=== PATIENT | female | born 1945 | race Caucasian/White ===

== ENCOUNTER → 2018-02-14 07:58 | Outpatient (CLI) | payer MEDICARE, OTHER, SELFPAY ==
[2018-02-14 08:30] LABS: Add Manual Diff / Slide Review NO; Basophils Percent Auto 0.6 % (0-2); Eosinophils Percent Auto 1.8 % (2-4); Hematocrit 38.5 % (36-46); Hemoglobin 12.4 g/dL (12.0-16.0); Lymphocytes Percent Auto 32.4 % (25-40); Mean Corpuscular HGB Conc 32.2 % (30-36); Mean Corpuscular Hemoglobin 26.8 PG (26-34); Mean Corpuscular Volume 83.3 fL (80-100); Monocytes Percent Auto 6.7 % (3-14); Neutrophils Absolute Auto 6500 /uL (3000-5900); Neutrophils Percent Auto 58.5 % (50-75); Platelet Count 250 X10^3/uL (150-400); Red Blood Cell Count 4.62 X10^6/uL (4.0-5.2); Red Cell Distribution Width 16.7 % (11.6-14.8); White Blood Cell Count 11.1 X10^3/uL (4.5-11.0)
[2018-02-14 08:48] LABS: Erythrocyte Sedimentation Rate 49 MM/HR (0-20)
[2018-02-14 08:57] LABS: C-Reactive Protein Quant 0.9 mg/dL (<1.0)
== END ==
PROVIDERS: Family Provider Family Medicine; PCP Family Medicine; Visit Provider Orthopaedic Surgery
DX: M25.561 Pain in right knee (principal); T84.53XD Infection and inflammatory reaction due to internal right knee prosthesis, subsequent encounter; Z96.651 Presence of right artificial knee joint
CPT/HCPCS: 36415; 85025; 85651; 86140

== ENCOUNTER → 2019-05-09 07:52 | Outpatient (CLI) | payer MEDICARE, OTHER, SELFPAY ==
[2019-05-09 09:21] LABS: Add Manual Diff / Slide Review NO; Basophils Absolute Auto 0 /uL (0-100); Basophils Percent Auto 0.2 % (0-2); Eosinophils Absolute Auto 200 /uL (0-450); Eosinophils Percent Auto 2.4 % (2-4); Hematocrit 37.9 % (36-46); Hemoglobin 12.6 g/dL (12.0-16.0); Lymphocytes Absolute Auto 3000 /uL (1100-4500); Lymphocytes Percent Auto 30.5 % (25-40); Mean Corpuscular HGB Conc 33.4 % (30-36); Mean Corpuscular Hemoglobin 28.4 PG (26-34); Mean Corpuscular Volume 85.3 fL (80-100); Monocytes Absolute Auto 600 /uL (0-900); Monocytes Percent Auto 6.2 % (3-14); Neutrophils Absolute Auto 6000 /uL (1500-7000); Neutrophils Percent Auto 60.7 % (50-75); Platelet Count 218 X10^3/uL (150-400); Red Blood Cell Count 4.44 X10^6/uL (4.0-5.2); Red Cell Distribution Width 14.2 % (11.6-14.8); White Blood Cell Count 9.8 X10^3/uL (4.5-11.0)
[2019-05-09 09:30] LABS: BUN Creatinine Ratio 21.3 (6-22); Blood Urea Nitrogen 17 mg/dL (7-17); Calcium 9.8 mg/dL (8.4-10.2); Carbon Dioxide 27 mmol/L (22-32); Chloride 99 mmol/L (98-107); Cholesterol 177 mg/dL (140-199); Estimated Glomerular Filt Rate > 60.0 mL/min (>60); Glucose 190 mg/dL (80-110); HDL Cholesterol 50 mg/dL (40-60); HEMOLYSIS < 15 (0-50); LDL Cholesterol Calculated 77 mg/dL (<100); Potassium 4.2 mmol/L (3.4-5.1); Sodium 140 mmol/L (137-145); Triglycerides 248 mg/dL (35-150)
[2019-05-09 09:31] LABS: Hemoglobin A1C% w Est Avg Glu 7.1 % (4.0-6.0)
[2019-05-09 09:56] LABS: Vitamin D 25 Hydroxy (D3) 32.4 ng/mL (30.0-100.0)
== END ==
PROVIDERS: Visit Provider Student in an Organized Health Care Education/Training Program
DX: E11.9 Type 2 diabetes mellitus without complications (principal); Z00.00 Encounter for general adult medical examination without abnormal findings; I10 Essential (primary) hypertension; E78.5 Hyperlipidemia, unspecified; E55.9 Vitamin D deficiency, unspecified
CPT/HCPCS: 36415; 80048; 80061; 82306; 83036; 85025

== ENCOUNTER → 2019-06-11 09:44 | Outpatient (CLI) | payer MEDICARE, OTHER, SELFPAY ==
--- NOTE | 2019-06-11 | DI.MG.S_ITS ---
BILATERAL DIGITAL SCREENING MAMMOGRAM 3D/2D WITH CAD: 06/11/2019 CLINICAL: Routine screening. Comparison is made to exams dated: 01/18/2018 mammogram, 07/26/2016 mammogram, and 06/22/2015 mammogram - [facility]. The tissue of both breasts is heterogeneously dense. This may lower the sensitivity of mammography. Current study was also evaluated with a Computer Aided Detection (CAD) system. There are benign calcifications in both breasts. No significant masses, calcifications, or other findings are seen in either breast. There has been no significant interval change. IMPRESSION: There is no mammographic evidence of malignancy. A 1 year screening mammogram is recommended. This exam was interpreted at Station ID: [id number]. NOTE: For mammograms, a report in lay terms will be sent to the patient. Approximately 15% of breast malignancies will not be visualized mammographically. In the management of a palpable breast mass, a negative mammogram must not discourage biopsy of a clinically suspicious lesion. Electronically Signed By: Nathaniel miller/isiah:06/11/2019 14:16:22 letter sent: Normal Exam ACR BI-RADS Category 2: Benign Finding(s) 3342F
== END ==
PROVIDERS: PCP Student in an Organized Health Care Education/Training Program; Visit Provider Student in an Organized Health Care Education/Training Program
DX: Z12.31 Encounter for screening mammogram for malignant neoplasm of breast (principal)
CPT/HCPCS: 77063; 77067

== ENCOUNTER → 2020-06-21 11:29 | Outpatient (CLI) | payer MEDICARE, OTHER, SELFPAY ==
--- NOTE | 2020-06-21 | DI.MG.S_ITS ---
BILATERAL DIGITAL SCREENING MAMMOGRAM 3D/2D WITH CAD: 06/21/2020 CLINICAL: Routine screening. Comparison is made to exams dated: 06/11/2019 mammogram, 01/18/2018 mammogram, and 07/26/2016 mammogram - [facility]. The tissue of both breasts is heterogeneously dense. This may lower the sensitivity of mammography. Current study was also evaluated with a Computer Aided Detection (CAD) system. There are benign calcifications in both breasts. No significant masses, calcifications, or other findings are seen in either breast. There has been no significant interval change. IMPRESSION: BENIGN There is no mammographic evidence of malignancy. A 1 year screening mammogram is recommended. This exam was interpreted at Station ID: [id number]. NOTE: For mammograms, a report in lay terms will be sent to the patient. Approximately 15% of breast malignancies will not be visualized mammographically. In the management of a palpable breast mass, a negative mammogram must not discourage biopsy of a clinically suspicious lesion. Electronically Signed By: Viola coates/isiah:06/21/2020 12:05:45 letter sent: Normal Exam ACR BI-RADS Category 2: Benign Finding(s) 3342F
== END ==
PROVIDERS: PCP Student in an Organized Health Care Education/Training Program; Referring Provider Student in an Organized Health Care Education/Training Program; Visit Provider Student in an Organized Health Care Education/Training Program
DX: Z12.31 Encounter for screening mammogram for malignant neoplasm of breast (principal)
CPT/HCPCS: 77063; 77067

== ENCOUNTER 2020-06-26 16:02 | Emergency (ER) | payer MEDICARE, OTHER, SELFPAY ==
--- NOTE | 2020-06-26 16:05 | DI.RAD.S_ITS ---
PROCEDURE: XR CHEST 1V INDICATIONS: chest pain TECHNIQUE: One view of the chest was acquired. COMPARISON: None. FINDINGS: Surgical changes and devices: None. Lungs and pleura: Lungs are clear. No pleural effusions or pneumothorax. Mediastinum: The cardiac contours are within normal limits. The aorta demonstrates calcification and tortuosity. Bones and chest wall: Age-appropriate bony degenerative changes are seen. S-shaped scoliotic curvature is seen. No suspicious bony lesions. Overlying soft tissues appear unremarkable. IMPRESSION: Unremarkable portable chest for age. Dictated by: Boaz You M.D. on 06/26/2020 at 15:43 Approved by: Boaz You M.D. on 06/26/2020 at 15:43
[2020-06-26 16:09] VITALS: PULSE 65; RESP 18; TEMP 36.3; O2SAT 99
--- NOTE | 2020-06-26 16:22 | ED.CHESTPAIN ---
HPI - Chest Pain General Chief Complaint: Chest Pain Stated Complaint: chest pains Time Seen by Provider: 06/26/20 16:07 Source: patient Mode of arrival: Ambulatory Limitations: no limitations History of Present Illness HPI narrative: Patient is a 75-year-old female who presents with chest pain back pain abdominal pain. She said she started having some back pain which radiated to her stomach 2 days ago. It has come and gone but now seems to be worse than it was previously. She does feel a little nauseous but no vomiting. Her pain is in the epigastric region she denies any real chest pain or pressure. No shortness of breath with exertion no fever or chills. MD complaint: chest pain Related Data Home Medications Medication Instructions Recorded Confirmed atorvastatin [Lipitor] 10 mg PO HS #0 05/22/12 ferrous sulfate [Iron (ferrous 65 mg PO BID #0 05/22/12 sulfate)] hydrochlorothiazide 25 mg PO QDAY #0 05/22/12 verapamil [Verelan PM] 300 mg PO HS #0 05/22/12 CA PANTOTHENATE/FOLIC ACID/VIT 1 tab PO QDAY #0 03/30/13 (MULTIVITAMIN) metformin [Fortamet] 1,000 mg PO BID #0 03/30/13 atenolol 50 mg PO HS #0 04/02/13 glimepiride [Amaryl] 4 mg PO BID #0 09/30/17 sitagliptin [Januvia] 100 mg PO QAM #0 09/30/17 Previous Rx's Medication Instructions Recorded aspirin 81 mg PO BID #60 10/08/17 oxycodone 0 mg PO Q3HP PRN #60 10/08/17 Allergies Allergy/AdvReac Type Severity Reaction Status Date / Time lisinopril [LISINOPRIL] Allergy Intermediate COUGH, RASH Unverified 12/18/17 12:22 valsartan [VALSARTAN] Allergy Intermediate COUGH, RASH Unverified 12/18/17 12:22 adhesive tape AdvReac Mild paper tape Verified 06/26/20 16:50 - makes skin red Review of Systems Review of Systems Narrative: GENERAL: Denies chills, fatigue, malaise, fever, sweats, travel HEENT: Denies sinus pain, ear pain, sore throat, difficulty swallowing, neck pain RESPIRATORY: Denies dyspnea, cough, wheezing, hemoptysis, sputum. CARDIOVASCULAR: See HPI GASTROINTESTINAL: See HPI : Denies dysuria, frequency, incontinence, hematuria, urinary retention, flank pain. MUSCULOSKELETAL: Denies weakness, joint pain, or bony pain SKIN: No rash, no erythema, no pruritus NEUROLOGIC: Denies weakness, dizziness, headache, numbness, change in speech, confusion PSYCHIATRIC: No concerning psychosocial issues. 12 point review of systems is negative except for those stated above and HPI Exam Initial Vital Signs Initial Vital Signs: Vital Signs Temperature 97.3 F L 06/26/20 16:09 Pulse Rate 65 06/26/20 16:09 Respiratory Rate 18 06/26/20 16:09 Pulse Oximetry 99 06/26/20 16:09 GENERAL: Alert elder female and in no acute distress. HEENT: Head atraumatic,EOMI, pupils reactive, face symmetric, moist mucous membranes CARDIOVASCULAR: Regular rate and rhythm without murmurs, rubs or gallops. RESPIRATORY: Breath sounds equal bilaterally, no wheezes rales or rhonchi. ABDOMEN: Soft, positive Mason sign right upper quadrant pain no guarding or rebound EXTREMITIES: Normal range of motion, no clubbing or edema. Neurovascularly intact NEUROLOGICAL: Alert and oriented x4.Normal gait and speech. SKIN: Warm, dry, no laceration, no petechiae, no rashes or lesions. Course Orders Ordered: ED Orders 06/26/20 16:05 XR chest 1V Stat EKG-12 Lead Stat 06/26/20 16:20 Complete Blood Count AUTO DIFF Stat Comprehensive Metabolic Panel Stat Lipase Stat Partial Thromboplastin Time Stat Prothrombin Time INR Stat Troponin & CK Cardiac Panel Stat 06/26/20 16:45 US abdomen limited Stat 06/26/20 18:19 COVID19 -ED/INPAT/OR/L&D Stat Discontinued Medications Ketorolac Tromethamine (Toradol) 15 mg IV NOW ONE Stop: 06/26/20 16:46 Last Admin: 06/26/20 17:19 Dose: 15 mg Documented by: REGINA Ondansetron HCl (Zofran) 4 mg IV NOW ONE Stop: 06/26/20 16:46 Last Admin: 06/26/20 17:20 Dose: 4 mg Documented by: REGINA Consultations Consultation #1: Dr. Mckoy surgery recommends patient be transferred where ERCP is available. MRCP is unavailable today Time: 17:45 Consultation #2: Dr. Steinberg GI specialist at [facility] agrees with transfer. Hospitalist needs to accept Time: 17:57 Consultation #3: Dr. Maradiaga hospitalist accepts at [facility] Time: 18:05 Vital Signs Vital signs: Vital Signs - 8 hr 06/26/20 16:09 06/26/20 16:26 06/26/20 16:30 Temperature 97.3 F L Pulse Rate 65 60 59 L Respiratory Rate 18 26 H 28 H Blood Pressure 185/74 H Pulse Oximetry 99 100 97 MDM - Chest Pain Lab Data Attestation: I reviewed the patient's lab results. Result diagrams: 06/26/20 16:20 06/26/20 16:20 Labs: Lab Results 06/26/20 06/26/20 06/26/20 Range/Units 16:20 16:20 16:20 WBC 9.2 (4.5-11.0) X10^3/uL RBC 4.85 (4.0-5.2) X10^6/uL Hgb 13.7 (12.0-16.0) g/dL Hct 41.5 (36-46) % MCV 85.6 (80-100) fL MCH 28.3 (26-34) PG MCHC 33.1 (30-36) % RDW 14.1 (11.6-14.8) % Plt Count 217 (150-400) X10^3/uL Neut % (Auto) 72.8 (50-75) % Lymph % (Auto) 18.9 L (25-40) % Glynn % (Auto) 7.2 (3-14) % Eos % (Auto) 0.6 L (2-4) % Baso % (Auto) 0.5 (0-2) % Neut # (Auto) 6700 (6336-5896) /uL Lymph # (Auto) 1700 (2760-5956) /uL Glynn # (Auto) 700 (0-900) /uL Eos # (Auto) 100 (0-450) /uL Baso # (Auto) 0 (0-100) /uL PT 11.3 (10.1-12.7) SECONDS INR 1.0 (0.9-1.3) APTT 29 (26.4-36.2) SECONDS Sodium 136 L (137-145) mmol/L Potassium 3.5 (3.4-5.1) mmol/L Chloride 94 L (98-107) mmol/L Carbon Dioxide 32 (22-32) mmol/L BUN 22 H (7-17) mg/dL Creatinine 0.76 (0.52-1.04) mg/dL Estimated GFR > 60.0 (>60) mL/min BUN/Creatinine Ratio 28.9 H (6-22) Glucose 341 H (80-110) mg/dL Calcium 10.0 (8.4-10.2) mg/dL Total Bilirubin 2.2 H (0.2-1.3) mg/dL AST 785 H (14-36) IU/L ALT 295 H (<35) IU/L Alkaline Phosphatase 161 H (38-126) U/L Total Creatine Kinase 25 L (30-135) U/L CK-MB (CK-2) TNP CK-MB (CK-2) Rel Index TNP Troponin I < 0.012 (0.01-0.034) ng/mL Total Protein 8.5 H (6.3-8.2) g/dL Albumin 4.6 (3.5-5.0) g/dL Globulin 3.9 (1.7-4.1) g/dL Albumin/Globulin Ratio 1.2 (1.0-2.8) Lipase 91 (23-300) U/L Imaging Data US - abdomen: Radiologist's Impression: PROCEDURE: US ABDOMEN LIMITED INDICATIONS: CHEST PAIN TECHNIQUE: Real-time focused scanning was performed of the abdomen, with image documentation. COMPARISON: None. FINDINGS: The liver is mildly prominent in size and demonstrates no focal lesions. There is mildly increased liver echogenicity. Sludge can be seen within the gallbladder. Potential mobile gallstones are seen. The gallbladder wall is not thickened, measuring 3 mm or less. No specific pericholecystic fluid is seen. The sonographic Mason sign is negative. The common bile duct is dilated at 12 mm. The pancreas appears fatty and there is minimal dilatation of the pancreatic duct at 3.4 mm. At the inferior pole of the right kidney, there is a 3 cm simple cyst seen. IMPRESSION: Sludge can be seen within the gallbladder. Potential gallstones are also seen, without additional gallbladder abnormality. Dilatation of the common bile duct and minimal dilatation of the pancreatic duct. If clinically appropriate, an MRCP could be considered for further evaluation (assuming that there is no contraindication to MRI). Simple appearing 3 cm cyst at the inferior pole of the right kidney. Dictated by: Boaz You M.D. on 06/26/2020 at 16:27 Approved by: Boaz You M.D. on 06/26/2020 at 16:29 Chest x-ray: Radiologist's Impression: PROCEDURE: XR CHEST 1V INDICATIONS: chest pain TECHNIQUE: One view of the chest was acquired. COMPARISON: None. FINDINGS: Surgical changes and devices: None. Lungs and pleura: Lungs are clear. No pleural effusions or pneumothorax. Mediastinum: The cardiac contours are within normal limits. The aorta demonstrates calcification and tortuosity. Bones and chest wall: Age-appropriate bony degenerative changes are seen. S-shaped scoliotic curvature is seen. No suspicious bony lesions. Overlying soft tissues appear unremarkable. IMPRESSION: Unremarkable portable chest for age. Dictated by: Boaz You M.D. on 06/26/2020 at 15:43 ECG Data Attestation: I personally reviewed and interpreted this ECG as follows: Prior ECG tracings: available for review Interpretation: Normal sinus rhythm rate 64 p.r. interval 172 QRS [address] changes MDM Narrative Medical decision making narrative: Patient is hemodynamically stable no leukocytosis or fever. Liver enzymes are elevated along with bilirubin ultrasound shows potential gallstones. With a dilated common bile duct suspect choledocholithiasis. Unable to do MRCP today, unable to do ERCP at this facility. Patient will be transferred to [facility] Patient's pain is controlled with Toradol Discharge [facility]: Choledocholithiasis, Cholecystitis Prescriptions: No Action hydrochlorothiazide 25 MG tablet 25 mg PO QDAY Qty: 0 RF: 0 atorvastatin [Lipitor] 10 MG tablet 10 mg PO HS Qty: 0 RF: 0 verapamil [Verelan PM] 300 MG capsule, [address] 300 mg PO HS Qty: 0 RF: 0 ferrous sulfate [Iron (ferrous sulfate)] 325 MG tablet 65 mg PO BID Qty: 0 RF: 0 metformin [Fortamet] 500 MG tablet extended release 24hr 1,000 mg PO BID Qty: 0 RF: 0 CA PANTOTHENATE/FOLIC ACID/VIT (MULTIVITAMIN) 1 tab PO QDAY Qty: 0 RF: 0 atenolol 50 MG tablet 50 mg PO HS Qty: 0 RF: 0 sitagliptin [Januvia] 100 MG tablet 100 mg PO QAM Qty: 0 RF: 0 glimepiride [Amaryl] 4 MG tablet 4 mg PO BID Qty: 0 RF: 0 aspirin 81 MG tablet,delayed release (DR/EC) 81 mg PO BID Qty: 60 RF: 0 oxycodone 5 MG tablet 0 mg PO Q3HP PRNQty: 60 RF: 0 Referrals: Eden Gomez MD [Primary Care Provider] -
[2020-06-26 16:26] VITALS: PULSE 60; RESP 26; O2SAT 100
[2020-06-26 16:29] LABS: Add Manual Diff / Slide Review NO; Basophils Absolute Auto 0 /uL (0-100); Basophils Percent Auto 0.5 % (0-2); Eosinophils Absolute Auto 100 /uL (0-450); Eosinophils Percent Auto 0.6 % (2-4); Hematocrit 41.5 % (36-46); Hemoglobin 13.7 g/dL (12.0-16.0); Lymphocytes Absolute Auto 1700 /uL (1100-4500); Lymphocytes Percent Auto 18.9 % (25-40); Mean Corpuscular HGB Conc 33.1 % (30-36); Mean Corpuscular Hemoglobin 28.3 PG (26-34); Mean Corpuscular Volume 85.6 fL (80-100); Monocytes Absolute Auto 700 /uL (0-900); Monocytes Percent Auto 7.2 % (3-14); Neutrophils Absolute Auto 6700 /uL (1500-7000); Neutrophils Percent Auto 72.8 % (50-75); Platelet Count 217 X10^3/uL (150-400); Red Blood Cell Count 4.85 X10^6/uL (4.0-5.2); Red Cell Distribution Width 14.1 % (11.6-14.8); White Blood Cell Count 9.2 X10^3/uL (4.5-11.0)
[2020-06-26 16:30] VITALS: BP 185/74; PULSE 59; RESP 28; O2SAT 97
[2020-06-26 16:37] LABS: Prothrombin Time 11.3 SECONDS (10.1-12.7)
[2020-06-26 16:39] LABS: PTT Partial Thromboplastin Tim 29 SECONDS (26.4-36.2)
[2020-06-26 16:41] LABS: Alanine Aminotransferase 295 IU/L (<35); Albumin 4.6 g/dL (3.5-5.0); Albumin Globulin Ratio 1.2 (1.0-2.8); Alkaline Phosphatase 161 U/L (38-126); BUN Creatinine Ratio 28.9 (6-22); Bilirubin Total 2.2 mg/dL (0.2-1.3); Blood Urea Nitrogen 22 mg/dL (7-17); Carbon Dioxide 32 mmol/L (22-32); Chloride 94 mmol/L (98-107); Creatine Kinase 25 U/L (30-135); Estimated Glomerular Filt Rate > 60.0 mL/min (>60); Globulin 3.9 g/dL (1.7-4.1); Glucose 341 mg/dL (80-110); HEMOLYSIS < 15 (0-50); Lipase 91 U/L (23-300); Potassium 3.5 mmol/L (3.4-5.1); Sodium 136 mmol/L (137-145); Total Protein 8.5 g/dL (6.3-8.2)
--- NOTE | 2020-06-26 16:45 | DI.US.S_ITS ---
PROCEDURE: US ABDOMEN LIMITED INDICATIONS: CHEST PAIN TECHNIQUE: Real-time focused scanning was performed of the abdomen, with image documentation. COMPARISON: None. FINDINGS: The liver is mildly prominent in size and demonstrates no focal lesions. There is mildly increased liver echogenicity. Sludge can be seen within the gallbladder. Potential mobile gallstones are seen. The gallbladder wall is not thickened, measuring 3 mm or less. No specific pericholecystic fluid is seen. The sonographic Mason sign is negative. The common bile duct is dilated at 12 mm. The pancreas appears fatty and there is minimal dilatation of the pancreatic duct at 3.4 mm. At the inferior pole of the right kidney, there is a 3 cm simple cyst seen. IMPRESSION: Sludge can be seen within the gallbladder. Potential gallstones are also seen, without additional gallbladder abnormality. Dilatation of the common bile duct and minimal dilatation of the pancreatic duct. If clinically appropriate, an MRCP could be considered for further evaluation (assuming that there is no contraindication to MRI). Simple appearing 3 cm cyst at the inferior pole of the right kidney. Dictated by: Boaz You M.D. on 06/26/2020 at 16:27 Approved by: Boaz You M.D. on 06/26/2020 at 16:29
[2020-06-26 16:47] LABS: Aspartate Aminotransferase 785 IU/L (14-36)
[2020-06-26 16:53] LABS: Troponin I < 0.012 ng/mL (0.01-0.034)
[2020-06-26] MEDS: KETOROLAC 60 MG/2 ML VIAL 15 MG IV (17:19)
[2020-06-26] MEDS: ONDANSETRON 4 MG/2 ML INJ IV (17:20)
--- NOTE | 2020-06-26 18:39 | PC.NURSE ---
SBAR GIVEN TO NURSE AT [place] [place]
[2020-06-26 18:44] LABS: COVID19 -Nasal RAPID Negative (Negative)
[2020-06-26] MEDS: atenoloL 25 MG TABLET 75 MG PO (19:34)
[2020-06-26] MEDS: ATORVASTATIN 20 MG TABLET 10 MG PO (19:34)
[2020-06-26 19:40] VITALS: BP 194/80; PULSE 81; RESP 18; O2SAT 99
[2020-06-26 21:04] VITALS: BP 162/65; PULSE 63; RESP 20; O2SAT 99
== END 2020-06-26 21:08 | disposition short-term general hospital (02) ==
PROVIDERS: Emergency Provider Emergency Medicine; PCP Student in an Organized Health Care Education/Training Program
DX: K80.40 Calculus of bile duct with cholecystitis, unspecified, without obstruction (principal); M54.9 Dorsalgia, unspecified; R07.9 Chest pain, unspecified
CPT/HCPCS: 36415; 71045; 76705; 80053; 82550; 83690; 84484; 85025; 85610; 85730; 87635; 93005; 93010; 96374; 96375; 99284; J1885; J2405

== ENCOUNTER → 2020-06-30 12:55 | Outpatient (CLI) | payer MEDICARE, OTHER, SELFPAY ==
--- NOTE | 2020-06-30 12:59 | DI.RAD.S_ITS ---
PROCEDURE: XR CHEST 2V INDICATIONS: fall, rib pain TECHNIQUE: 2 views of the chest were acquired. COMPARISON: [facility], CR, XR RIBS LT 2V, 06/30/2020, 13:15. [facility], CR, XR CHEST 1V, 06/26/2020, 16:10. FINDINGS: Surgical changes and devices: None. Lungs and pleura: Lungs are clear. No pleural effusions or pneumothorax. Mediastinum: The cardiac contours are within normal limits. The aorta demonstrates calcification and tortuosity. Bones and chest wall: No suspicious bony abnormalities. Age-appropriate bony degenerative changes are seen. Soft tissues appear unremarkable. IMPRESSION: Unremarkable chest plain films for age, without displaced rib fractures or pneumothorax. Dictated by: Boaz You M.D. on 06/30/2020 at 12:29 Approved by: Boaz You M.D. on 06/30/2020 at 12:30
--- NOTE | 2020-06-30 12:59 | DI.RAD.S_ITS ---
PROCEDURE: XR RIBS LT 2V INDICATIONS: fall, rib pain TECHNIQUE: 2 views of the left ribs were acquired. COMPARISON: [facility], CR, XR CHEST 2V, 06/30/2020, 13:12. [facility], CR, XR CHEST 1V, 06/26/2020, 16:10. FINDINGS: Surgical changes and devices: None. Bones and chest wall: No fractures or dislocations. No suspicious bony lesions. Overlying soft tissues appear unremarkable. Age-appropriate bony degenerative changes are seen. Lungs and pleura: The visualized lung appears clear. No pleural effusions or pneumothorax are visible. IMPRESSION: No displaced fractures can be seen. Dictated by: Boaz You M.D. on 06/30/2020 at 12:31 Approved by: Boaz You M.D. on 06/30/2020 at 12:31
== END ==
PROVIDERS: PCP Student in an Organized Health Care Education/Training Program; Referring Provider Physician Assistant; Visit Provider Physician Assistant
DX: R07.81 Pleurodynia (principal)
CPT/HCPCS: 71046; 71100

== ENCOUNTER → 2020-08-15 13:43 | Outpatient (CLI) | payer MEDICARE, OTHER, SELFPAY ==
[2020-08-15 15:11] LABS: COVID19 -Nasal RAPID Negative (Negative)
== END ==
PROVIDERS: PCP Student in an Organized Health Care Education/Training Program; Visit Provider Physician Assistant
DX: Z11.59 Encounter for screening for other viral diseases (principal)
CPT/HCPCS: 87635